=== PATIENT | female | born 1990 | race American Indian/Alaskan Native ===

== ENCOUNTER 2018-11-27 10:32 | Emergency (ER) | payer SELFPAY ==
[2018-11-27 10:39] VITALS: BP 107/56
[2018-11-27 12:59] LABS: Amorphous Crystals,Urine 2+; Bilirubin,Urine NEG (Negative); Blood,Urine LG (Negative); Color,Urine Yellow (Yellow); Mucus,Urine FEW /HPF; Urobilinogen,Urine < 2.0 mg/dL (<2.0)
[2018-11-27 13:02] LABS: HCG Qualitative,Urine Negative (Negative)
[2018-11-27] MEDS ORDERED: ULTRAM PO ONE (13:27)
--- NOTE | 2018-11-27 13:28 | Emergency Department Report ---
ED Female HPI - General Chief complaint: Abdominal Pain Stated complaint: ABD PAIN Source: patient Mode of arrival: Ambulatory Limitations: No Limitations - History of Present Illness Initial comments: This is a 28 year-old female who presents to the emergency room with diffuse abdominal cramps for one day. Patient states menses starting yesterday with severe abdominal cramps. She reports a history of severe pain with start of menses as a child. States she have not had pain since a teenager. Patient states she took 600 mg of ibuprofen this morning with no improvement of symptoms. Patient states cramps lasted for 3 hours. 0. She denies vaginal discharge, urinary frequency, urgency, dysuria, or back pain. MD Complaint: other (abdominal cramps) Onset/Timin -: days(s) Location: other (diffuse abdominal pain) Radiation: non-radiating Severity: moderate Severity scale (0 -10): 7 Quality: cramping Consistency: intermittent Improves with: none Worsens with: none Are you Now?: No Last Menstrual Period: 11/26/18 EDC: 09/02/19 Associated Symptoms: denies other symptoms - Related Data Sexually active: Yes : 1 Para: 0 A: 1 () Previous Rx's Medication Instructions Recorded Last Taken Type Ciprofloxacin HCl [Cipro] 500 mg PO BID #14 tablet 05/27/18 Unknown Rx Promethazine [Phenergan TAB] 25 mg PO Q6HR PRN #20 tab 05/27/18 Unknown Rx Promethazine [Phenergan] 25 mg [place] Q6HR PRN #10 supp.rect 05/27/18 Unknown Rx traMADol [Ultram 50 MG tab] 50 mg PO Q6H PRN #12 tablet 11/27/18 Unknown Rx Allergies Allergy/AdvReac Type Severity Reaction Status Date / Time No Known Allergies Allergy Unverified 05/27/18 02:22 ED Review of Systems ROS: Stated complaint: ABD PAIN Other details as noted in HPI Constitutional: denies: chills, fever Respiratory: denies: cough, shortness of breath, wheezing Cardiovascular: denies: chest pain, palpitations Gastrointestinal: abdominal pain. denies: nausea, diarrhea Genitourinary: denies: urgency, dysuria, discharge Skin: denies: rash, lesions Neurological: denies: headache, weakness, paresthesias Psychiatric: denies: anxiety, depression ED Past Medical Hx - Past Medical History Previous Medical History?: Yes Additional medical history: abd pain - Surgical History Past Surgical History?: No - Social History Smoking Status: Never Smoker Substance Use Type: Alcohol - Medications Home Medications: Home Medications Medication Instructions Recorded Confirmed Last Taken Type Ciprofloxacin HCl [Cipro] 500 mg PO BID #14 tablet 05/27/18 Unknown Rx Promethazine [Phenergan TAB] 25 mg PO Q6HR PRN #20 tab 05/27/18 Unknown Rx Promethazine [Phenergan] 25 mg [place] Q6HR PRN #10 supp.rect 05/27/18 Unknown Rx traMADol [Ultram 50 MG tab] 50 mg PO Q6H PRN #12 tablet 11/27/18 Unknown Rx ED Physical Exam - General Limitations: No Limitations General appearance: alert, in no apparent distress - Respiratory Respiratory exam: Present: normal lung sounds bilaterally. Absent: respiratory distress - Cardiovascular Cardiovascular Exam: Present: regular rate, normal rhythm. Absent: systolic murmur, diastolic murmur, rubs, gallop - GI/Abdominal GI/Abdominal exam: Present: soft, normal bowel sounds. Absent: distended, tenderness, guarding, rebound, rigid - Back Exam Back exam: Absent: CVA tenderness (R), CVA tenderness (L) - Neurological Exam Neurological exam: Present: alert, oriented X3, normal gait - Psychiatric Psychiatric exam: Present: normal affect, normal mood - Skin Skin exam: Present: warm, dry, intact, normal color. Absent: rash ED Course Vital Signs 11/27/18 11/27/18 10:34 12:10 Temperature 97.9 F Pulse Rate 67 Respiratory 18 16 Rate Blood Pressure 107/56 O2 Sat by Pulse 100 Oximetry ED Medical Decision Making - Lab Data Lab Results 11/27/18 Range/Units 12:35 Urine Color Yellow (Yellow) Urine Turbidity Turbid (Clear) Urine pH 5.0 (5.0-7.0) Ur Specific [place] 1.023 (1.003-1.030) Urine Protein 30 mg/dl (Negative) mg/dL Urine Glucose (UA) Neg (Negative) mg/dL Urine Ketones 20 (Negative) mg/dL Urine Blood Lg (Negative) Urine Nitrite Neg (Negative) Urine Bilirubin Neg (Negative) Urine Urobilinogen < 2.0 (<2.0) mg/dL Ur Leukocyte Esterase Neg (Negative) Urine WBC (Auto) 5.0 (0.0-6.0) /HPF Urine RBC (Auto) 39.0 (0.0-6.0) /HPF U Epithel Cells (Auto) 7.0 (0-13.0) /HPF Amorphous Crystals 2+ Urine Mucus Few /HPF Urine HCG, Qual Negative (Negative) - Medical Decision Making Patient was examined by me. Vitals are normal and patient is in no acute distress. Obtained a urinalysis and urine tests which were all normal. On focal exam patient was nontender abdomen and negative CVA tenderness. Findings are susceptible of dysmennorhea. Patient informed of results. Start tramadol for pain. Plan discussed with patient to discharge home and treat outpatient. She agrees with ER plan. Patient discharged home in stable condition. Follow up with PCP in 2-3 days. Critical care attestation.: If time is entered above; I have spent that time in minutes in the direct care of this critically ill patient, excluding procedure time. ED Disposition Clinical Impression: Dysmenorrhea, Abdominal cramping Disposition: TO HOME OR SELFCARE Is pt being admited?: No Does the pt Need Aspirin: No Condition: Stable Instructions: Abdominal Pain (ED), Dysmenorrhea (ED) Additional Instructions: Follow-up with a key filer for continued care. Take pain medication over 6-8 hours as needed for pain. Return to the emergency room if worsening symptoms. Prescriptions: traMADol [Ultram 50 MG tab] 50 mg PO Q6H PRN #12 tablet PRN Reason: Pain , Severe (7-10) Referrals: [facility] [Primary Care Provider] - 3-5 Days [facility] [Provider Group] - 3-5 Days [facility] [Provider Group] - 3-5 Days [facility] [Provider Group] - 3-5 Days Forms: Work/School Release Form(ED) Time of Disposition: 13:30
== END 2018-11-27 13:55 | disposition home or self-care (01) ==
LOC: ED 10:32
DX: N94.6 Dysmenorrhea, unspecified (principal)
CPT/HCPCS: 81001; 81025

== ENCOUNTER 2021-05-12 17:53 | Emergency (ER) | payer BC ==
[2021-05-12] MEDS ORDERED: NEOMY 3.5 MG/BACIT 400 UNITS/POLY B 5000 UNITS/GM OINT PACKET TP ONE (19:06)
[2021-05-12] MEDS ORDERED: TETANUS,DIPH,PERTUSS(ACELL) VACCINE 0.5 ML SYRINGE IM ONE (19:06)
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
[2021-05-12 21:42] VITALS: BP 145/97
== END 2021-05-12 20:26 | disposition home or self-care (01) ==
LOC: ED 17:53
DX: T23.151A Burn of first degree of right palm, initial encounter (principal); X15.8XXA Contact with other hot household appliances, initial encounter; Y93.89 Activity, other specified; Y92.89 Other specified places as the place of occurrence of the external cause; Y99.8 Other external cause status
CPT/HCPCS: 90471; 90715

== ENCOUNTER 2022-01-03 23:14 | Emergency (ER) | payer OTHER, BC ==
[2022-01-04 07:57] VITALS: BP 140/86
[2022-01-04] MEDS ORDERED: IBUPROFEN 800 MG TAB PO ONE (08:03)
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
== END 2022-01-04 10:41 | disposition home or self-care (01) ==
LOC: ED 23:14
DX: S13.4XXA Sprain of ligaments of cervical spine, initial encounter (principal); S16.1XXA Strain of muscle, fascia and tendon at neck level, initial encounter; S49.92XA Unspecified injury of left shoulder and upper arm, initial encounter; V49.40XA Driver injured in collision with unspecified motor vehicles in traffic accident, initial encounter; Y93.89 Activity, other specified; Y92.89 Other specified places as the place of occurrence of the external cause; Y99.8 Other external cause status
CPT/HCPCS: 72040; 99283